=== PATIENT | female | born 1935 | race Caucasian/White ===

== ENCOUNTER → 2018-09-19 | Outpatient (CLI) | payer MEDICARE ==
[~2018-09-19] MED LIST: CALC-322 PO; GARL1TAB2 PO; HYDR-4457 PO; LEVO25TA4 PO; LOSA25TA41 PO; MEGA RED PO; MONT10TA21 PO; MULT-1250 PO; OMEP20TA2 PO; PRED20TA3 PO; RED600CA6 PO
== END | disposition home or self-care (01) ==
LOC: SHCH 14:23
PROVIDERS: ATTEND Internal Medicine Cardiovascular Disease
DX: I65.23 Occlusion and stenosis of bilateral carotid arteries (principal)
CPT/HCPCS: 93880

== ENCOUNTER → 2018-09-29 | Outpatient (CLI) | payer MEDICARE | END | disposition home or self-care (01) | LOC: SHCH 14:58 | PROVIDERS: ATTEND Internal Medicine Cardiovascular Disease | DX: I34.0 Nonrheumatic mitral (valve) insufficiency (principal); I35.8 Other nonrheumatic aortic valve disorders; I25.10 Atherosclerotic heart disease of native coronary artery without angina pectoris | CPT/HCPCS: 93306 ==

== ENCOUNTER → 2018-10-03 | Outpatient (CLI) | payer MEDICARE ==
[~2018-10-03] VITALS: Ht 152.4 cm; Wt 67.1 kg
[~2018-10-03] MED LIST changes: +REGADENOSON 0.4 MG/5 ML PF SYG IVP SCH
== END | disposition home or self-care (01) ==
LOC: SHCH 07:51
PROVIDERS: ATTEND Internal Medicine Cardiovascular Disease
DX: I25.10 Atherosclerotic heart disease of native coronary artery without angina pectoris (principal)
CPT/HCPCS: 78452; 93017; 96374; A9500 ×2; J2785

== ENCOUNTER 2019-08-25 15:57 | Emergency (ER) | payer MEDICARE ==
[~2019-08-25 15:57] MED LIST changes: -REGADENOSON 0.4 MG/5 ML PF SYG IVP SCH
[2019-08-25 16:08] LABS: BASOPHILS % (AUTO) 0.7 % (0.0-5.0); EOSINOPHILS % (AUTO) 3.6 % (0.0-8.0); HEMATOCRIT 43.4 % (36-48); LYMPHOCYTES % (AUTO) 27.6 % (21.0-51.0); MEAN CORPUSCULAR HEMOGLOBIN 29.9 pg (27.0-33.0); MEAN CORPUSCULAR HGB CONC 33.4 g/dL (32.0-36.0); MEAN CORPUSCULAR VOLUME 89.5 fL (79-99); MONOCYTES % (AUTO) 7.1 % (3.0-13.0); NEUTROPHILS % (AUTO) 60.8 % (40.0-77.0); PLATELET COUNT (AUTO) 164 K/uL (130-400); RED BLOOD CELL COUNT(AUTO) 4.85 MIL/uL (4.00-5.50); RED CELL DISTRIBUTION WIDTH 12.1 % (11.0-15.5); WHITE BLOOD COUNT (AUTO) 8.1 K/uL (4.8-10.8)
[2019-08-25 16:17] LABS: CREATININE 1.2 mg/dL (0.5-1.5); POTASSIUM 4.2 mmol/L (3.5-5.1)
[2019-08-25 16:19] LABS: INR 0.97 (0.85-1.15); PROTHROMBIN TIME 10.2 SEC (9.6-11.6)
[2019-08-25 16:22] LABS: ALBUMIN 3.9 g/dL (3.5-5.0); BILIRUBIN,TOTAL 0.5 mg/dL (0.2-1.0); TOTAL PROTEIN, SERUM 7.5 g/dL (6.0-8.3)
[2019-08-25] MEDS ORDERED: SODIUM CHLORIDE 0.9% 1000ML 1,000 ML IV ONE (16:34)
== END 2019-08-25 18:32 | disposition home or self-care (01) ==
LOC: EDH 15:57
DX: R19.7 Diarrhea, unspecified (principal); R00.2 Palpitations; I25.10 Atherosclerotic heart disease of native coronary artery without angina pectoris; Z90.49 Acquired absence of other specified parts of digestive tract; Z88.6 Allergy status to analgesic agent; Z88.8 Allergy status to other drugs, medicaments and biological substances
CPT/HCPCS: 36415; 71045; 80053; 82550; 84484; 85025; 85610; 85730; 93005; 99285; J7030

== ENCOUNTER 2019-11-30 00:03 | Observation (INO) | payer MEDICARE ==
[~2019-11-30] VITALS: Ht 152.4 cm; Wt 69.0 kg
[2019-11-30 00:45] LABS: CREATININE 1.2 mg/dL (0.5-1.5); POTASSIUM 3.7 mmol/L (3.5-5.1)
[2019-11-30 00:46] LABS: PARTIAL THROMBOPLASTIN TIME 28.9 SEC (26.3-35.5); PROTHROMBIN TIME 10.8 SEC (9.6-11.6)
[2019-11-30 00:50] LABS: ALBUMIN 3.2 g/dL (3.5-5.0); BILIRUBIN,TOTAL 0.3 mg/dL (0.2-1.0); TOTAL PROTEIN, SERUM 6.9 g/dL (6.0-8.3)
[2019-11-30 00:53] LABS: BASOPHILS % (AUTO) 0.5 % (0.0-5.0); EOSINOPHILS % (AUTO) 10.8 % (0.0-8.0); HEMATOCRIT 37.2 % (36-48); LYMPHOCYTES % (AUTO) 12.7 % (21.0-51.0); MEAN CORPUSCULAR HEMOGLOBIN 29.6 pg (27.0-33.0); MEAN CORPUSCULAR HGB CONC 33.6 g/dL (32.0-36.0); MEAN CORPUSCULAR VOLUME 88.2 fL (79-99); MONOCYTES % (AUTO) 10.9 % (3.0-13.0); NEUTROPHILS % (AUTO) 64.4 % (40.0-77.0); PLATELET COUNT (AUTO) 192 K/uL (130-400); RED BLOOD CELL COUNT(AUTO) 4.22 MIL/uL (4.00-5.50); RED CELL DISTRIBUTION WIDTH 12.6 % (11.0-15.5); WHITE BLOOD COUNT (AUTO) 10.7 K/uL (4.8-10.8)
[2019-11-30 00:58] LABS: B-TYPE NATRIURETIC PEPTIDE 176 pg/mL (0-100)
[2019-11-30 01:02] LABS: APPEARANCE,URINE Clear (CLEAR); BILIRUBIN,URINE Negative (NEGATIVE); COLOR,URINE Yellow (YELLOW); GLUCOSE, URINE (UA) Negative (NEGATIVE); KETONES,URINE Negative (NEGATIVE); LEUKOCYTE ESTERASE ,URINE Small (NEGATIVE); NITRATE,URINE Negative (NEGATIVE); OCCULT BLOOD,URINE Negative (NEGATIVE); PROTEIN,URINE Negative (NEGATIVE); UROBILINOGEN,URINE 0.2 mg/dL (0.2-1.0)
[2019-11-30 01:15] LABS: BACTERIA,URINE None Seen /HPF (None Seen); MUCUS,URINE Few LPF (None Seen); RBC,URINE None Seen /HPF (0-1); SQUAMOUS EPITHELIAL CELL,UR Few /HPF (0-2); WBC,URINE None Seen /HPF (0-1)
[2019-11-30] MEDS ORDERED: ASPIRIN 325 MG TABLET ONE (01:21)
[2019-11-30] MEDS ORDERED: ACETAMINOPHEN 325 MG TAB ONE (01:22)
[2019-11-30] MEDS ORDERED: MORPHINE SULFATE 4 MG/1ML SYG IVP PRN (02:30)
--- NOTE | 2019-11-30 03:00 | NUR ---
Admission note: Admitted to floor via stretcher. VS checked and recorded. Assessment done. ( see CPOE flow chart for full assessment) . Attached to Tele at bedside. Oriented to room and used of call light. Policies and procedures explained. Agreed and verbalized understanding. Home meds continued as ordered. Plan of care initiated. Stated no more pain at the chest. Back pain barely feels it. Monitored and observed for any unusualities. No apparent distress noted.
[2019-11-30 03:06] VITALS: BP 121/49
[2019-11-30] MEDS ORDERED: CELECOXIB 200 MG CAP PO PRN (03:45)
[2019-11-30] MEDS ORDERED: PROP225C8 PO (03:47)
[2019-11-30] MEDS ORDERED: EZET10TA48 PO (03:47)
[2019-11-30] MEDS ORDERED: UBID1CAP56 PO (03:47)
[2019-11-30] MEDS ORDERED: AEC81 PO (03:47)
[2019-11-30] MEDS ORDERED: LACT1CAP58 PO (03:47)
[2019-11-30] MEDS ORDERED: CELE200 PO (03:47)
[2019-11-30 05:22] LABS: BASOPHILS % (AUTO) 0.5 % (0.0-5.0); EOSINOPHILS % (AUTO) 12.3 % (0.0-8.0); HEMATOCRIT 34.9 % (36-48); LYMPHOCYTES % (AUTO) 14.6 % (21.0-51.0); MEAN CORPUSCULAR HGB CONC 34.1 g/dL (32.0-36.0); MEAN CORPUSCULAR VOLUME 87.9 fL (79-99); MONOCYTES % (AUTO) 9.3 % (3.0-13.0); NEUTROPHILS % (AUTO) 62.8 % (40.0-77.0); PLATELET COUNT (AUTO) 192 K/uL (130-400); RED BLOOD CELL COUNT(AUTO) 3.97 MIL/uL (4.00-5.50); RED CELL DISTRIBUTION WIDTH 12.5 % (11.0-15.5); WHITE BLOOD COUNT (AUTO) 11.1 K/uL (4.8-10.8)
[2019-11-30 05:43] LABS: ALANINE AMINOTRANSFERASE 52 U/L (12-78); ALBUMIN 2.8 g/dL (3.5-5.0); ASPARTATE AMINOTRANSFERASE 32 U/L (10-37); BILIRUBIN,TOTAL 0.4 mg/dL (0.2-1.0); CARBON DIOXIDE 25 mmol/L (21-32); CHLORIDE 102 mmol/L (101-111); CREATINE KINASE, TOTAL 77 U/L (21-232); CREATININE 1.1 mg/dL (0.5-1.5); GLOMERULAR FILTR. RATE CALC 50 mL/min (>60); GLUCOSE,RANDOM 86 mg/dL (70-105); MYOGLOBIN 97 ng/mL (10-92); POTASSIUM 3.8 mmol/L (3.5-5.1); SODIUM SERUM 137 mmol/L (136-145); TOTAL PROTEIN, SERUM 6.3 g/dL (6.0-8.3); TROPONIN I < 0.04 ng/mL (0.00-0.06); UREA NITROGEN, BLOOD 22 mg/dL (7-18)
[2019-11-30] MEDS: LEVOTHYROXINE 25 MCG TABLET PO SCH (06:34)
[2019-11-30 08:00] VITALS: BP 126/64
[2019-11-30] MEDS: PANTOPRAZOLE SODIUM 40 MG TABLET.DR PO SCH (08:58)
[2019-11-30] MEDS: ASPIRIN 81 MG EC TAB PO SCH (08:58)
[2019-11-30] MEDS: MULTIVITAMINS/MINERALS/IRO TAB PO SCH (08:58)
[2019-11-30] MEDS: CALCIUM CARBONATE 500 MG TABLET PO SCH ×2 (08:59→21:15)
[2019-11-30] MEDS ORDERED: LACTOBACILLUS RHAMNOSUS GG 1 EACH CAPSULE PO SCH (09:00)
[2019-11-30] MEDS ORDERED: LEVOTHYROXINE 25 MCG TABLET PO SCH (09:00)
[2019-11-30] MEDS ORDERED: LACTOBACILLUS RHAMNOSUS GG 1 EACH CAP.SPRINK PO ONE (09:00)
[2019-11-30] MEDS ORDERED: PREDNISONE 20 MG TABLET PO SCH (09:00)
[2019-11-30] MEDS ORDERED: MEGA RED PO SCH (09:00)
[2019-11-30] MEDS: GARLIC PO SCH ×3 (09:00→21:15)
[2019-11-30] MEDS: PROPAFENONE HCL 150 MG TABLET PO SCH ×2 (09:00→21:14)
[2019-11-30 12:00] VITALS: BP 112/57
[2019-11-30] MEDS: CO Q10 100 MG PO SCH (12:15)
[2019-11-30] MEDS: RED YEAST RICE PO SCH ×2 (12:15→17:24)
[2019-11-30] MEDS: LACTOBACILLUS RHAMNOSUS GG 1 EACH CAP.SPRINK PO SCH (13:14)
[2019-11-30 13:56] LABS: CREATINE KINASE, TOTAL 89 U/L (21-232); MYOGLOBIN 106 ng/mL (10-92); TROPONIN I < 0.04 ng/mL (0.00-0.06)
[2019-11-30 16:00] VITALS: BP 112/57
--- NOTE | 2019-11-30 16:14 | NUR ---
DCP:HOME spoke to pt's life partner Eliazar Sloan [phone]. Per Mr Catalina he and pt have lived together over 30 years. Pt is independent, active, no DME or in home care services. Partner reports PCP is Dr Crowley and they use [facility] for medications. Partner given contact # for CORBY Girard for updates. CM to follow and assist as needed. Plan is [facility] Addendum: 11/30/19 at 1617 by JOY RUDOLPH Amended: Links added.
[2019-11-30 19:00] VITALS: BP 144/61
[2019-11-30] MEDS ORDERED: LOSARTAN 50 MG TABLET PO SCH (21:00)
[2019-11-30] MEDS ORDERED: MONTELUKAST SODIUM 10 MG TAB PO SCH (21:00)
[2019-11-30] MEDS ORDERED: EZETIMIBE 10 MG TAB PO SCH (21:00)
[2019-11-30 23:47] VITALS: BP 129/66
[2019-12-01 03:50] VITALS: BP 150/77
--- NOTE | 2019-12-01 06:30 | NUR ---
MD VISIT IN TO SEE PATIENT, INFORMED HER THAT THE SKIDDER RUNNER DON'T THINK THE PROBLEM IS THE HEART. DID ASK PATIENT IF SHE WAS GOING TO CONTINUE THE PROPRANOLOL. INFORMED HER TO ASK SK[employer]NER SEE WHAT THEY SUGGEST.
[2019-12-01] MEDS: LEVOTHYROXINE 25 MCG TABLET PO SCH (06:59)
[2019-12-01 08:00] VITALS: BP 113/50
[2019-12-01] MEDS: ASPIRIN 81 MG EC TAB PO SCH (08:53)
[2019-12-01] MEDS: MULTIVITAMINS/MINERALS/IRO TAB PO SCH (08:54)
[2019-12-01] MEDS: LACTOBACILLUS RHAMNOSUS GG 1 EACH CAP.SPRINK PO SCH (08:54)
[2019-12-01] MEDS: CALCIUM CARBONATE 500 MG TABLET PO SCH (08:55)
[2019-12-01] MEDS: PROPAFENONE HCL 150 MG TABLET PO SCH (08:56)
[2019-12-01] MEDS: PANTOPRAZOLE SODIUM 40 MG TABLET.DR PO SCH (08:56)
[2019-12-01] MEDS: GARLIC PO SCH (09:00)
[2019-12-01 12:00] VITALS: BP 95/45
[2019-12-01] MEDS: RED YEAST RICE PO SCH (12:16)
[2019-12-01] MEDS: CO Q10 100 MG PO SCH (12:16)
== END 2019-12-01 13:20 | disposition home or self-care (01) ==
LOC: EDH 00:03 → EDHIP 01:58 → 3CH 02:20
PROVIDERS: ADMIT Internal Medicine; ATTEND Internal Medicine
DX: R07.2 Precordial pain (principal); I48.0 Paroxysmal atrial fibrillation; I25.10 Atherosclerotic heart disease of native coronary artery without angina pectoris; I11.9 Hypertensive heart disease without heart failure; E78.5 Hyperlipidemia, unspecified; E03.9 Hypothyroidism, unspecified; Z85.828 Personal history of other malignant neoplasm of skin; Z88.8 Allergy status to other drugs, medicaments and biological substances; Z88.6 Allergy status to analgesic agent; Z91.040 Latex allergy status; Z90.49 Acquired absence of other specified parts of digestive tract; Z96.643 Presence of artificial hip joint, bilateral
CPT/HCPCS: 36415; 71045; 80053 ×2; 81001; 82550 ×3; 83874 ×2; 83880; 84484 ×3; 85025 ×2; 85610; 85730; 93005 ×2; 93306; 99285; G0378 ×25